=== PATIENT | female | born 1995 | race Caucasian/White ===

== ENCOUNTER 2017-04-14 06:53 | Inpatient (IN) | payer MEDICAID ==
[2017-04-14] MEDS ORDERED: Ondansetron 4 MG/2 ML SDV IV PRN (07:18)
[2017-04-14] MEDS ORDERED: Acetaminophen 325 MG Tab PO PRN (07:18)
[2017-04-14] MEDS ORDERED: Sodium Chloride 0.9% 10 ML Syringe FLUSH PRN (07:18)
[2017-04-14] MEDS ORDERED: fentaNYL 100 MCG/2 ML SDV IVPUSH PRN (07:18)
[2017-04-14] MEDS ORDERED: Lactated Ringers 1,000 ML IV ONE (07:33)
[2017-04-14] MEDS: Misoprostol 50 MCG (1/2 of 100 MCG) Tab VAG SCH ×3 (07:50→21:56)
--- NOTE | 2017-04-14 08:29 | PCM.LDHP ---
L&D History of Present Illness - General Date of Service: 04/14/17 Admit Problem/Dx: Patient Status Order with Admit Dx/Problem 04/14/17 07:19 Patient Status [ADT] Routine Admission Diagnosis/Problem Admission Diagnosis/Problem Source of Information: Patient History Limitations: Reports: No Limitations - Related Data Allergies/Adverse Reactions: Allergies Allergy/AdvReac Type Severity Reaction Status Date / Time seasonal Allergy Cough Uncoded 04/14/17 07:22 Home Medications: Home Meds Docosahexanoic Acid [ Dha] 200 mg DAILY 04/14/17 [History] Sertraline [Zoloft] 100 mg PO DAILY 04/14/17 [History] metFORMIN HCl [Metformin HCl ER] 500 mg PO DAILY 04/14/17 [History] Past Medical History - Past Health History Medical/Surgical History: Denies Medical/Surgical History 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 : 1 Para: 0 Other OB/BYN History: ANGELIQUE-04/10/2017 Neurological History: Reports: Other (See Below) Other Neuro History: PCOS Psychiatric History: Reports: Anxiety Social & Family History - Family History Respiratory: Reports: Asthma Psychiatric: Reports: Anxiety, Bipolar, Depression Hematologic: Reports: Anemia Other Hematologic Family History: maternal grandma H&P Review of Systems - Review of Systems: Review Of Systems: See Below General: Reports: No Symptoms HEENT: Reports: No Symptoms Pulmonary: Reports: No Symptoms Cardiovascular: Reports: No Symptoms Gastrointestinal: Reports: No Symptoms Genitourinary: Reports: No Symptoms Musculoskeletal: Reports: No Symptoms Skin: Reports: No Symptoms Psychiatric: Reports: No Symptoms Neurological: Reports: No Symptoms Hematologic/Lymphatic: Reports: No Symptoms Immunologic: Reports: No Symptoms L&D Exam - Exam Exam: See Below - Vital Signs Weight: 109.316 kg - OB Specific Contraction Intensity: Mild Movement: Active Heart Tones: Present Presentation: Vertex Estimated Weight: 8lbs - Lee Score Lee Score Cervix Position: Midposition Lee Score Consistency: Soft Lee Score Effacement: 51-70% Lee Score Dilation: 1-2 cm Lee Score Infant's Station: -2 Lee Score Total: 7 - Exam General: Alert, Oriented HEENT: PERRLA, Conjunctiva Clear, EACs Clear, EOMI, Hearing Intact, Mucosa Moist & [place], Nares Patent, Normal Nasal Septum, Posterior Pharynx Clear, TMs Clear Neck: Supple, Trachea Midline Lungs: Clear to Auscultation, Normal Respiratory Effort Cardiovascular: Regular Rate, Regular Rhythm GI/Abdominal Exam: Normal Bowel Sounds, Soft, Non-Tender, No Organomegaly, No Distention, No Abnormal Bruit, No Mass, Pelvis Stable Rectal Exam: Normal Exam, Normal Rectal Tone Genitourinary: Normal external exam, Normal bimanual exam, Normal speculum exam Back Exam: Normal Inspection, Full Range of Motion Extremities: Normal Inspection, Normal Range of Motion, Non-Tender, No Pedal Edema, Normal Capillary Refill Skin: Warm, Dry, Intact Neurological: Cranial Nerves Intact, Reflexes Equal Bilateral Psychiatric: Alert, Normal Affect, Normal Mood - Patient Data Lab Results Last 24 hrs: Laboratory Results - last 24 hr 04/14/17 04/14/17 04/14/17 Range/Units 07:05 07:05 07:40 WBC 15.3 H (4.5-11.0) K/uL RBC 4.27 (3.30-5.50) M/uL Hgb 12.5 (12.0-15.0) g/dL Hct 38.1 (36.0-48.0) % MCV 89 (80-98) fL MCH 29 (27-31) pg MCHC 33 (32-36) % Plt Count 231 (150-400) K/uL Add Manual Diff Yes Neutrophils % (Manual) 64 (36-66) % Band Neutrophils % 3 L (5-11) % Lymphocytes % (Manual) 22 L (24-44) % Monocytes % (Manual) 9 H (2-6) % Eosinophils % (Manual) 1 L (2-4) % Basophils % (Manual) 1 (0-1) % Urine Color Yellow Urine Appearance Slightly cloudy Urine pH 6.0 (4.5-8.0) Ur Specific [place] 1.020 (1.008-1.030) Urine Protein Negative (NEGATIVE) mg/dL Urine Glucose (UA) Normal (NEGATIVE) mg/dL Urine Ketones Negative (NEGATIVE) mg/dL Urine Occult Blood Negative (NEGATIVE) Urine Nitrite Negative (NEGATIVE) Urine Bilirubin Negative (NEGATIVE) Urine Urobilinogen Normal (NORMAL) mg/dL Ur Leukocyte Esterase Negative (NEGATIVE) Urine RBC 0-5 (0-5) Urine WBC 0-5 (0-5) Ur Epithelial Cells Rare Amorphous Sediment Not seen Urine Bacteria Rare Urine Mucus Moderate Urine Opiates Screen Negative (NEGATIVE) Ur Oxycodone Screen Negative (NEGATIVE) Urine Methadone Screen Negative (NEGATIVE) Ur Propoxyphene Screen Negative (NEGATIVE) Ur Barbiturates Screen Negative (NEGATIVE) Ur Tricyclics Screen Negative (NEGATIVE) Ur Phencyclidine Scrn Negative (NEGATIVE) Ur Amphetamine Screen Negative (NEGATIVE) U Methamphetamines Scrn Negative (NEGATIVE) Urine MDMA Screen Negative (NEGATIVE) U Benzodiazepines Scrn Negative (NEGATIVE) U Cocaine Metab Screen Negative (NEGATIVE) U Marijuana (THC) Screen Negative (NEGATIVE) Result Diagrams: 04/14/17 07:40 - Problem List (1) SNOMED Code(s): 50538211 ICD Code: Z34.90 - ENCNTR FOR SUPRVSN OF NORMAL , UNSP, UNSP TRIMESTER Status: Acute Current Visit: Yes Qualifiers: Weeks of gestation: 40 weeks Qualified Code(s): Z3A.40 - 40 weeks gestation of (2) Post-dates SNOMED Code(s): 23538560 ICD Code: O48.0 - POST-TERM Status: Acute Current Visit: Yes Qualifiers: Post-term type: 40-42 weeks gestation Qualified Code(s): O48.0 - Post-term (3) Elevated WBC count SNOMED Code(s): 528905127 ICD Code: D72.829 - ELEVATED WHITE BLOOD CELL COUNT, UNSPECIFIED Status: Acute Current Visit: Yes (4) Encounter for induction of labor SNOMED Code(s): 838243621 ICD Code: Z34.90 - ENCNTR FOR SUPRVSN OF NORMAL , UNSP, UNSP TRIMESTER Status: Acute Current Visit: Yes Problem List Initiated/Reviewed/Updated: Yes Orders Last 24hrs: Active Orders 24 hr Category Date Time Status Patient Status [ADT] Routine ADT 04/14/17 07:19 Active Ambulate [RC] PER UNIT ROUTINE Care 04/14/17 07:18 Active Communication Order [RC] ASDIRECTED Care 04/14/17 07:19 Active Heart Tones [RC] PER UNIT ROUTINE Care 04/14/17 07:19 Active Local Anesthetic Infusion Pump [RC] ASDIRECTED Care 04/14/17 07:33 Active May Shower [RC] ASDIRECTED Care 04/14/17 07:18 Active Notify Provider Vital Signs [RC] PRN Care 04/14/17 07:18 Active Notify Provider [RC] PRN Care 04/14/17 07:19 Active PCEA Epidural [RC] ASDIRECTED Care 04/14/17 07:33 Active Up ad Izabella [RC] ASDIRECTED Care 04/14/17 07:18 Active VTE/DVT Education [RC] Click to Edit Care 04/14/17 07:29 Active Vital Signs [RC] PER UNIT ROUTINE Care 04/14/17 07:19 Active Acetaminophen [Tylenol] Med 04/14/17 07:18 Active 650 mg PO Q4H PRN Lactated Ringers [Ringers, Lactated] 1,000 ml Med 04/14/17 07:33 Active IV .BOLUS Lactated Ringers [Ringers, Lactated] 1,000 ml Med 04/14/17 08:30 Ordered IV ASDIRECTED Misoprostol [Cytotec] Med 04/14/17 08:00 Active 50 mcg VAG Q4H Ondansetron [Zofran] Med 04/14/17 07:18 Active 4 mg IV Q4H PRN Penicillin G Potassium [Pfizerpen] 2.5 millunits Med 04/14/17 12:30 Ordered Sodium Chloride 0.9% [Normal Saline] 50 ml IV Q4H Penicillin G Potassium [Pfizerpen] 5 millunits Med 04/14/17 08:20 Ordered Sodium Chloride 0.9% [Normal Saline] 50 ml IV ONETIME Sodium Chloride 0.9% [Saline Flush] Med 04/14/17 07:18 Active 10 ml FLUSH ASDIRECTED PRN fentaNYL [Sublimaze] Med 04/14/17 07:18 Active 100 mcg IVPUSH Q1H PRN DVT/VTE Prophylaxis Reflex [OM.PC] Routine Oth 04/14/17 07:18 Ordered Epidural Catheter Management [OM.PC] Routine Oth 04/14/17 07:33 Ordered Saline Lock Insert [OM.PC] Routine Oth 04/14/17 07:19 Ordered Resuscitation Status Routine Resus Stat 04/14/17 07:18 Ordered Medication Orders Acetaminophen (Tylenol) 650 mg PO Q4H PRN PRN Reason: Pain (Mild 1-3) and fever Fentanyl (Sublimaze) 100 mcg IVPUSH Q1H PRN PRN Reason: Pain (moderate 4-6) Lactated Ringer's (Ringers, Lactated) 1,000 mls @ 999 mls/hr IV .BOLUS ONE Stop: 04/14/17 08:33 Lactated Ringer's (Ringers, Lactated) 1,000 mls @ 125 mls/hr IV ASDIRECTED LORRI Penicillin G Potassium 5 (millunits/ Sodium Chloride) 50 mls @ 100 mls/hr IV ONETIME ONE Stop: 04/14/17 08:49 Penicillin G Potassium 2.5 (millunits/ Sodium Chloride) 50 mls @ 100 mls/hr IV Q4H LORRI Misoprostol (Cytotec) 50 mcg VAG Q4H LORRI Last Admin: 04/14/17 07:50 Dose: 50 mcg Ondansetron HCl (Zofran) 4 mg IV Q4H PRN PRN Reason: Nausea/Vomiting Sodium Chloride (Saline Flush) 10 ml FLUSH ASDIRECTED PRN PRN Reason: Keep Vein Open Assessment/Plan Comment:: 04/14/2017 21 yo 40 4/7 weeks gestation here for a planned elective induction SVE-1-2/75/-2 bishops-7 Cytotec 50mcg placed Plan- Monitor for active labor Monitor FHTs Up and about Can eat regular diet Intermittent monitoring if category one strip Pain management per patient request Anticipate and plan for a vaginal delivery
[2017-04-14] MEDS ORDERED: Lactated Ringers 1,000 ML IV SCH (08:30)
[2017-04-14] MEDS ORDERED: Penicillin G Potassium 5 MILLUNITS in Sodium Chloride 0.9% 50 ML IV ONE (09:00)
--- NOTE | 2017-04-14 10:32 | PCM.PNLD ---
Labor Progress Note - VS & Meds Vital Signs: Last Vital Signs Temp 37.1 C 04/14/17 08:00 Pulse 98 04/14/17 08:30 Resp 18 04/14/17 08:30 BP 110/73 04/14/17 08:30 Pulse Ox 95 04/14/17 08:30 Active Medications: Current Medications Acetaminophen (Tylenol) 650 mg PO Q4H PRN PRN Reason: Pain (Mild 1-3) and fever Fentanyl (Sublimaze) 100 mcg IVPUSH Q1H PRN PRN Reason: Pain (moderate 4-6) Lactated Ringer's (Ringers, Lactated) 1,000 mls @ 125 mls/hr IV ASDIRECTED LORRI Last Admin: 04/14/17 09:05 Dose: 125 mls/hr Penicillin G Potassium 2.5 (millunits/ Sodium Chloride) 50 mls @ 100 mls/hr IV Q4H LORRI Misoprostol (Cytotec) 50 mcg VAG Q4H [facility] Last Admin: 04/14/17 07:50 Dose: 50 mcg Ondansetron HCl (Zofran) 4 mg IV Q4H PRN PRN Reason: Nausea/Vomiting Sodium Chloride (Saline Flush) 10 ml FLUSH ASDIRECTED PRN PRN Reason: Keep Vein Open Discontinued Medications Oxytocin/Sodium Chloride (Pitocin In Ns 20 Units/1,000 Ml) 20 unit in 1,000 mls @ 2,997 mls/hr IV ONETIME ONE; 999 MUNITS/MIN PRN Reason: Protocol Stop: 04/14/17 07:53 Lactated Ringer's (Ringers, Lactated) 1,000 mls @ 999 mls/hr IV .BOLUS ONE Stop: 04/14/17 08:33 Penicillin G Potassium 5 (millunits/ Sodium Chloride) 50 mls @ 100 mls/hr IV ONETIME ONE Stop: 04/14/17 09:29 Last Admin: 04/14/17 09:05 Dose: 100 mls/hr - Uterine Contractions Uterine Monitoring Mode: External [place] Contraction Frequency (min): undetecable Contraction Duration (sec): 40-80 Contraction Intensity: Mild Uterine Resting Tone: Soft - Vaginal Exam Dilation (cm): 2-2.5 Effacement (Percent): 75 Station: -2 Cervical Position: Anterior Sterile Vaginal Exam Performed By: Shalonda Ley Vaginal Exam Comment: SROM - Labor Progress (Free Text) Labor Progress: 04/14/2017 Patient felt a "pop" and a gush SVE-2-2.5/75/-2 Fluid noted in vaginal canal and able to feel head better Patient tolerating pain well Plan- Continue to monitor labor Continue to monitor FHT Pain management per patient request Continue antibiotics for elevated WBC Continue IV fluids Anticipate and plan for a vaginal delivery
[2017-04-14] MEDS: fentaNYL 100 MCG/2 ML SDV IVPUSH PRN ×2 (11:48→12:52)
--- NOTE | 2017-04-14 12:55 | PCM.PNLD ---
Labor Progress Note - VS & Meds Vital Signs: Last Vital Signs Temp 36.9 C 04/14/17 11:00 Pulse 100 04/14/17 11:00 Resp 18 04/14/17 11:00 BP 118/77 04/14/17 11:00 Pulse Ox 98 04/14/17 11:00 Active Medications: Current Medications Acetaminophen (Tylenol) 650 mg PO Q4H PRN PRN Reason: Pain (Mild 1-3) and fever Fentanyl (Sublimaze) 50 - 100 mcg IVPUSH Q1H PRN PRN Reason: Pain (moderate 4-6) Last Admin: 04/14/17 11:48 Dose: 50 mcg Lactated Ringer's (Ringers, Lactated) 1,000 mls @ 125 mls/hr IV ASDIRECTED LORRI Last Admin: 04/14/17 09:05 Dose: 125 mls/hr Penicillin G Potassium 2.5 (millunits/ Sodium Chloride) 50 mls @ 100 mls/hr IV Q4H LORRI Oxytocin/Sodium Chloride (Pitocin In Ns 20 Units/1,000 Ml) 20 unit in 1,000 mls @ 6 mls/hr IV TITRATE LORRI; 2 MUNITS/MIN PRN Reason: Protocol Misoprostol (Cytotec) 50 mcg VAG Q4H LORRI Last Admin: 04/14/17 07:50 Dose: 50 mcg Ondansetron HCl (Zofran) 4 mg IV Q4H PRN PRN Reason: Nausea/Vomiting Last Admin: 04/14/17 11:51 Dose: 4 mg Sodium Chloride (Saline Flush) 10 ml FLUSH ASDIRECTED PRN PRN Reason: Keep Vein Open Discontinued Medications Fentanyl (Sublimaze) 100 mcg IVPUSH Q1H PRN PRN Reason: Pain (moderate 4-6) Oxytocin/Sodium Chloride (Pitocin In Ns 20 Units/1,000 Ml) 20 unit in 1,000 mls @ 2,997 mls/hr IV ONETIME ONE; 999 MUNITS/MIN PRN Reason: Protocol Stop: 04/14/17 07:53 Lactated Ringer's (Ringers, Lactated) 1,000 mls @ 999 mls/hr IV .BOLUS ONE Stop: 04/14/17 08:33 Penicillin G Potassium 5 (millunits/ Sodium Chloride) 50 mls @ 100 mls/hr IV ONETIME ONE Stop: 04/14/17 09:29 Last Admin: 04/14/17 09:05 Dose: 100 mls/hr - Uterine Contractions Uterine Monitoring Mode: External [place] Contraction Frequency (min): indeterminate Contraction Duration (sec): 40-80 Contraction Intensity: Moderate to Strong Uterine Resting Tone: Soft - Vaginal Exam Dilation (cm): 3-3.5 Effacement (Percent): 85 Station: -2 Cervical Position: Anterior Sterile Vaginal Exam Performed By: Shalonda Ley Vaginal Exam Comment: patient requesting epidural - Labor Progress (Free Text) Labor Progress: 04/14/2017 Patient progressing in labor SVE-3-3.5/85/-2 Contractions regular FHTs category one Patient not tolerating pain with IV medications and is requesting an epidural Plan- Continue to monitor labor Continue to monitor FHTs Epidural for pain management per patient request Once comfortable-place sterling catheter and start pitocin Anticipate and plan for a vaginal delivery
[2017-04-14] MEDS ORDERED: ePHEDrine/Normal Saline 50 MG/5 ML Syringe IVPUSH PRN ×2 (13:06→14:19)
[2017-04-14] MEDS: Penicillin G Potassium 2.5 MILLUNITS in Sodium Chloride 0.9% 50 ML IV SCH ×3 (13:12→21:56)
[2017-04-14] MEDS ORDERED: ePHEDrine/Normal Saline 50 MG/5 ML Syringe ONE (13:47)
[2017-04-14] MEDS ORDERED: Ropivacaine 100 ML EPIDUR SCH (14:19)
[2017-04-14] MEDS ORDERED: diphenhydrAMINE 50 MG/ML SDV IVPUSH PRN (14:19)
[2017-04-14] MEDS ORDERED: Naloxone 0.4 MG/ML SDV IVPUSH PRN (14:19)
[2017-04-14] MEDS ORDERED: Lactated Ringers 500 ML IV ONE (15:50)
--- NOTE | 2017-04-14 17:19 | PCM.PNLD ---
Labor Progress Note - VS & Meds Vital Signs: Last Vital Signs Temp 37.2 C 04/14/17 16:30 Pulse 110 H 04/14/17 16:30 Resp 18 04/14/17 16:30 BP 108/63 04/14/17 16:30 Pulse Ox 97 04/14/17 15:30 Active Medications: Current Medications Acetaminophen (Tylenol) 650 mg PO Q4H PRN PRN Reason: Pain (Mild 1-3) and fever Diphenhydramine HCl (Benadryl) 25 mg IVPUSH Q6H PRN PRN Reason: ITCHING Ephedrine Sulfate (Ephedrine In Ns) 5 - 10 mg IVPUSH ONETIME PRN PRN Reason: Hypotension Ephedrine Sulfate (Ephedrine In Ns) 5 - 10 mg IVPUSH ASDIRECTED PRN PRN Reason: SYSTOLIC BP LESS THAN 100 Fentanyl (Sublimaze) 50 - 100 mcg IVPUSH Q1H PRN PRN Reason: Pain (moderate 4-6) Last Admin: 04/14/17 12:52 Dose: 100 mcg Lactated Ringer's (Ringers, Lactated) 1,000 mls @ 125 mls/hr IV ASDIRECTED LORRI Last Admin: 04/14/17 09:05 Dose: 125 mls/hr Penicillin G Potassium 2.5 (millunits/ Sodium Chloride) 50 mls @ 100 mls/hr IV Q4H LORRI Last Admin: 04/14/17 16:54 Dose: 100 mls/hr Oxytocin/Sodium Chloride (Pitocin In Ns 20 Units/1,000 Ml) 20 unit in 1,000 mls @ 6 mls/hr IV TITRATE LORRI; 2 MUNITS/MIN PRN Reason: Protocol Last Titration: 04/14/17 15:36 Dose: 2 munits/min, 6 mls/hr Ropivacaine (Naropin 0.2%) 100 mls @ 0 mls/hr EPIDUR ASDIRECTED LORRI; Titrate PRN Reason: Protocol Misoprostol (Cytotec) 50 mcg VAG Q4H LORRI Last Admin: 04/14/17 16:58 Dose: Not Given Naloxone HCl (Narcan) 0.1 mg IVPUSH Q5M PRN PRN Reason: IF RESP RATE LESS THAN 6 Ondansetron HCl (Zofran) 4 mg IV Q4H PRN PRN Reason: Nausea/Vomiting Last Admin: 04/14/17 11:51 Dose: 4 mg Sodium Chloride (Saline Flush) 10 ml FLUSH ASDIRECTED PRN PRN Reason: Keep Vein Open Discontinued Medications Ephedrine Sulfate (Ephedrine In Ns) Confirm Administered Dose 50 mg .ROUTE .STK- MED ONE Stop: 04/14/17 13:48 Last Admin: 04/14/17 15:04 Dose: Not Given Fentanyl (Sublimaze) 100 mcg IVPUSH Q1H PRN PRN Reason: Pain (moderate 4-6) Oxytocin/Sodium Chloride (Pitocin In Ns 20 Units/1,000 Ml) 20 unit in 1,000 mls @ 2,997 mls/hr IV ONETIME ONE; 999 MUNITS/MIN PRN Reason: Protocol Stop: 04/14/17 07:53 Lactated Ringer's (Ringers, Lactated) 1,000 mls @ 999 mls/hr IV .BOLUS ONE Stop: 04/14/17 08:33 Last Admin: 04/14/17 12:41 Dose: 999 mls/hr Penicillin G Potassium 5 (millunits/ Sodium Chloride) 50 mls @ 100 mls/hr IV ONETIME ONE Stop: 04/14/17 09:29 Last Admin: 04/14/17 09:05 Dose: 100 mls/hr Oxytocin/Sodium Chloride (Pitocin In Ns 20 Units/1,000 Ml) Confirm Administered Dose 20 unit in 1,000 mls @ as directed .ROUTE .STK-MED ONE Stop: 04/14/17 14:57 Last Admin: 04/14/17 15:02 Dose: Not Given Lactated Ringer's (Ringers, Lactated) 500 mls @ 999 mls/hr IV BOLUS ONE Stop: 04/14/17 16:20 - Uterine Contractions Uterine Monitoring Mode: External [place] Contraction Frequency (min): indeterminate Contraction Duration (sec): 40-60 Contraction Intensity: Mild to Moderate Uterine Resting Tone: Soft - Vaginal Exam Dilation (cm): 8 Effacement (Percent): 95 Station: -1 Cervical Position: Anterior Sterile Vaginal Exam Performed By: Shalonda Ley - Labor Progress (Free Text) Labor Progress: 04/14/2017 Patient progressing in labor nicely SVE-8/95/-1-0 Patient now comfortable with epidural Pitocin going per protocol Pen G going per protocol Plan- Continue to monitor labor Continue to monitor FHTS Continue Epidural for pain control Continue antibiotics per protocol Anticipate and plan for a vaginal delivery
[2017-04-14] MEDS ORDERED: Lidocaine 1% 50 ML MDV ONE (19:03)
[2017-04-14] MEDS ORDERED: Benzocaine 20% Top Spray 56 GM Bottle TOP PRN (19:42)
[2017-04-14] MEDS ORDERED: Docusate Sodium 100 MG Cap PO PRN (19:42)
[2017-04-14] MEDS ORDERED: Ibuprofen 600 MG Tab PO PRN (19:42)
[2017-04-14] MEDS ORDERED: Acetaminophen/Codeine 300-30 MG Tab PO PRN (19:42)
[2017-04-14] MEDS ORDERED: Witch Hazel Medicated Pads 100/Jar TOP PRN (19:42)
[2017-04-14] MEDS ORDERED: Lanolin 100% Cream 40 GM Tube TOP PRN (19:42)
[2017-04-14] MEDS ORDERED: Ibuprofen 200 MG Tab, 24 Tab Bulk Bottle PO PRN (19:48)
[2017-04-14] MEDS ORDERED: Acetaminophen 325 MG Tab, 50 Tab Bulk Bottle PO PRN ×3 (19:48→22:15)
--- NOTE | 2017-04-14 19:54 | PCM.DEL ---
L & D Note - General Info Date of Service: 04/14/17 Mother's Due Date: 04/10/17 - Delivery Note Labor: Spontaneous Delivery Outcome: Livebirth Infant Delivery Method: Spontaneous Vaginal Delivery-Single Infant Delivery Mode: Spontaneous Presentation: Left Occiput Anterior (TORITO) Nuchal Cord: None Anesthesia Type: Epidural Laceration: 1st Degree, Labial (bilateral-deep), Perineal Suture type: Chromic Suture size: 3-0 Placenta: Intact, Spontaneous Cord: 3 Vessels Resuscitation Needed: No [place]: Bulb Syringe, Stimulated, Warmed, [place] Used Post Delivery Events: Shoulder Dystocia Second Stage Interventions: Reports: Encouragement Given, Pushing Effectively Delivery Comments (Free Text/Narrative):: 04/14/2017 21 yo at 40 4/7 gestational weeks delivered a viable female infant at 1839 on 04/14/2017 in ANJEL position, with a moderate shoulder dystocia that resolved with suprapubic, Leila, and manuever of anterior shoulder. -9 /9, weight-7lbs 5.4oz, length-19.4 inches, cord double clamped by provider and infant brought to warmer for initial assessment, infant began to cry as being placed on the warmer, infant then pinked in color, bulb suction, dried, stimulated and warmed before bringing back to mother for skin to skin. Placenta then spontaneous, three vessel cord, EBL-500ml, Bilateral labial lacerations noted and first degree perineal-all repaired in usual fashion. No lacerations noted of cervix, vagina, or rectum. Infant now remains skin to skin and stable with mother in labor and delivery room. - Patient Data Vitals - Most Recent: Last Vital Signs Temp 37.7 C 04/14/17 18:03 Pulse 107 H 04/14/17 18:03 Resp 16 04/14/17 18:03 BP 123/68 04/14/17 18:03 Pulse Ox 98 04/14/17 18:03 Weight - Most Recent: 109.316 kg Lab Results Last 24 Hours: Laboratory Results - last 24 hr 04/14/17 04/14/17 04/14/17 Range/Units 07:05 07:05 07:40 WBC 15.3 H (4.5-11.0) K/uL RBC 4.27 (3.30-5.50) M/uL Hgb 12.5 (12.0-15.0) g/dL Hct 38.1 (36.0-48.0) % MCV 89 (80-98) fL MCH 29 (27-31) pg MCHC 33 (32-36) % Plt Count 231 (150-400) K/uL Add Manual Diff Yes Neutrophils % (Manual) 64 (36-66) % Band Neutrophils % 3 L (5-11) % Lymphocytes % (Manual) 22 L (24-44) % Monocytes % (Manual) 9 H (2-6) % Eosinophils % (Manual) 1 L (2-4) % Basophils % (Manual) 1 (0-1) % Urine Color Yellow Urine Appearance Slightly cloudy Urine pH 6.0 (4.5-8.0) Ur Specific [place] 1.020 (1.008-1.030) Urine Protein Negative (NEGATIVE) mg/dL Urine Glucose (UA) Normal (NEGATIVE) mg/dL Urine Ketones Negative (NEGATIVE) mg/dL Urine Occult Blood Negative (NEGATIVE) Urine Nitrite Negative (NEGATIVE) Urine Bilirubin Negative (NEGATIVE) Urine Urobilinogen Normal (NORMAL) mg/dL Ur Leukocyte Esterase Negative (NEGATIVE) Urine RBC 0-5 (0-5) Urine WBC 0-5 (0-5) Ur Epithelial Cells Rare Amorphous Sediment Not seen Urine Bacteria Rare Urine Mucus Moderate Urine Opiates Screen Negative (NEGATIVE) Ur Oxycodone Screen Negative (NEGATIVE) Urine Methadone Screen Negative (NEGATIVE) Ur Propoxyphene Screen Negative (NEGATIVE) Ur Barbiturates Screen Negative (NEGATIVE) Ur Tricyclics Screen Negative (NEGATIVE) Ur Phencyclidine Scrn Negative (NEGATIVE) Ur Amphetamine Screen Negative (NEGATIVE) U Methamphetamines Scrn Negative (NEGATIVE) Urine MDMA Screen Negative (NEGATIVE) U Benzodiazepines Scrn Negative (NEGATIVE) U Cocaine Metab Screen Negative (NEGATIVE) U Marijuana (THC) Screen Negative (NEGATIVE) Med Orders - Current: Current Medications Acetaminophen (Tylenol) 650 mg PO Q4H PRN PRN Reason: Pain (Mild 1-3) and fever Acetaminophen (Tylenol Bulk Bottle) 325 mg PO Q4H PRN PRN Reason: Pain Acetaminophen/Codeine Phosphate (Tylenol With Codeine No.3 300mg/30mg) 1 tab PO Q4H PRN PRN Reason: Pain (moderate 4-6) Benzocaine (Nhdy-O-Dmjclty 20% [place]) 0 gm TOP Q4H PRN PRN Reason: Perineal Comfort Measure Diphenhydramine HCl (Benadryl) 25 mg IVPUSH Q6H PRN PRN Reason: ITCHING Docusate Sodium (Colace) 100 mg PO BID PRN PRN Reason: Constipation Emollient Ointment (Lansinoh Hpa) 1 gm TOP ASDIRECTED PRN PRN Reason: Sore Nipples Ephedrine Sulfate (Ephedrine In Ns) 5 - 10 mg IVPUSH ONETIME PRN PRN Reason: Hypotension Ephedrine Sulfate (Ephedrine In Ns) 5 - 10 mg IVPUSH ASDIRECTED PRN PRN Reason: SYSTOLIC BP LESS THAN 100 Fentanyl (Sublimaze) 50 - 100 mcg IVPUSH Q1H PRN PRN Reason: Pain (moderate 4-6) Last Admin: 04/14/17 12:52 Dose: 100 mcg Lactated Ringer's (Ringers, Lactated) 1,000 mls @ 125 mls/hr IV ASDIRECTED LORRI Last Admin: 04/14/17 09:05 Dose: 125 mls/hr Penicillin G Potassium 2.5 (millunits/ Sodium Chloride) 50 mls @ 100 mls/hr IV Q4H LORRI Last Admin: 04/14/17 16:54 Dose: 100 mls/hr Oxytocin/Sodium Chloride (Pitocin In Ns 20 Units/1,000 Ml) 20 unit in 1,000 mls @ 6 mls/hr IV TITRATE LORRI; 2 MUNITS/MIN PRN Reason: Protocol Last Titration: 04/14/17 15:36 Dose: 2 munits/min, 6 mls/hr Ropivacaine (Naropin 0.2%) 100 mls @ 0 mls/hr EPIDUR ASDIRECTED LORRI; Titrate PRN Reason: Protocol Ibuprofen (Motrin) 600 mg PO Q6H PRN PRN Reason: mild pain or fever Ibuprofen (Motrin Bulk Bottle) 600 mg PO Q6H PRN PRN Reason: Pain Misoprostol (Cytotec) 50 mcg VAG Q4H LORRI Last Admin: 04/14/17 16:58 Dose: Not Given Naloxone HCl (Narcan) 0.1 mg IVPUSH Q5M PRN PRN Reason: IF RESP RATE LESS THAN 6 Ondansetron HCl (Zofran) 4 mg IV Q4H PRN PRN Reason: Nausea/Vomiting Last Admin: 04/14/17 11:51 Dose: 4 mg Sodium Chloride (Saline Flush) 10 ml FLUSH ASDIRECTED PRN PRN Reason: Keep Vein Open Susan Simons (Tucks) 1 pad TOP ASDIRECTED PRN PRN Reason: Hemorrhoids Discontinued Medications Ephedrine Sulfate (Ephedrine In Ns) Confirm Administered Dose 50 mg .ROUTE .STK- MED ONE Stop: 04/14/17 13:48 Last Admin: 04/14/17 15:04 Dose: Not Given Fentanyl (Sublimaze) 100 mcg IVPUSH Q1H PRN PRN Reason: Pain (moderate 4-6) Oxytocin/Sodium Chloride (Pitocin In Ns 20 Units/1,000 Ml) 20 unit in 1,000 mls @ 2,997 mls/hr IV ONETIME ONE; 999 MUNITS/MIN PRN Reason: Protocol Stop: 04/14/17 07:53 Lactated Ringer's (Ringers, Lactated) 1,000 mls @ 999 mls/hr IV .BOLUS ONE Stop: 04/14/17 08:33 Last Admin: 04/14/17 12:41 Dose: 999 mls/hr Penicillin G Potassium 5 (millunits/ Sodium Chloride) 50 mls @ 100 mls/hr IV ONETIME ONE Stop: 04/14/17 09:29 Last Admin: 04/14/17 09:05 Dose: 100 mls/hr Oxytocin/Sodium Chloride (Pitocin In Ns 20 Units/1,000 Ml) Confirm Administered Dose 20 unit in 1,000 mls @ as directed .ROUTE .STK-MED ONE Stop: 04/14/17 14:57 Last Admin: 04/14/17 15:02 Dose: Not Given Lactated Ringer's (Ringers, Lactated) 500 mls @ 999 mls/hr IV BOLUS ONE Stop: 04/14/17 16:20 Lidocaine HCl (Xylocaine 1%) Confirm Administered Dose 100 ml .ROUTE .STK-MED ONE Stop: 04/14/17 19:04 - Exam General: Alert, Oriented HEENT: Pupils Equal, Pupils Reactive, EOMI, Mucous Membr. Moist/[place] Neck: Supple Lungs: Clear to Auscultation, Normal Respiratory Effort Cardiovascular: Regular Rate, Regular Rhythm GI/Abdominal Exam: Normal Bowel Sounds, Soft, Non-Tender, No Organomegaly, No Distention, No Abnormal Bruit, No Mass, Pelvis Stable (Female) Exam: Normal External Exam, Normal Speculum Exam, Normal Bimanual Exam, Enlarged Uterus, Vaginal Bleeding Back Exam: Normal Inspection, Full Range of Motion Extremities: Normal Inspection, Normal Range of Motion, Non-Tender, No Pedal Edema, Normal Capillary Refill Skin: Warm, Dry, Intact Neurological: No New Focal Deficit Psy/Mental Status: Alert, Normal Affect, Normal Mood - Problem List & Annotations (1) SNOMED Code(s): 14189780 Code(s): Z34.90 - ENCNTR FOR SUPRVSN OF NORMAL , UNSP, UNSP TRIMESTER Status: Acute Current Visit: Yes Qualifiers: Weeks of gestation: 40 weeks Qualified Code(s): Z3A.40 - 40 weeks gestation of (2) Post-dates SNOMED Code(s): 44854854 Code(s): O48.0 - POST-TERM Status: Acute Current Visit: Yes Qualifiers: Post-term type: 40-42 weeks gestation Qualified Code(s): O48.0 - Post-term (3) Elevated WBC count SNOMED Code(s): 299157941 Code(s): D72.829 - ELEVATED WHITE BLOOD CELL COUNT, UNSPECIFIED Status: Acute Current Visit: Yes (4) Encounter for induction of labor SNOMED Code(s): 777823423 Code(s): Z34.90 - ENCNTR FOR SUPRVSN OF NORMAL , UNSP, UNSP TRIMESTER Status: Acute Current Visit: Yes (5) Maternal fever affecting labor SNOMED Code(s): 820927619 Code(s): O75.2 - PYREXIA DURING LABOR, NOT ELSEWHERE CLASSIFIED Status: Acute Current Visit: Yes (6) Laceration of labial mucosa without complication SNOMED Code(s): 418402544 Code(s): S01.512A - LACERATION WITHOUT FOREIGN BODY OF ORAL CAVITY, INIT ENCNTR Status: Acute Current Visit: Yes Qualifiers: Encounter type: initial encounter Qualified Code(s): S01.512A - Laceration without foreign body of oral cavity, initial encounter (7) Perineal laceration SNOMED Code(s): 931449830 Code(s): S31.41XA - LACERATION W/O FOREIGN BODY OF VAGINA AND VULVA, INIT ENCNTR Status: Acute Current Visit: Yes Qualifiers: Encounter type: initial encounter Qualified Code(s): S31.41XA - Laceration without foreign body of vagina and vulva, initial encounter (8) Normal vaginal delivery SNOMED Code(s): 45365536 Code(s): O80 - ENCOUNTER FOR FULL-TERM UNCOMPLICATED DELIVERY Status: Acute Current Visit: Yes (9) Shoulder (girdle) dystocia during labor and deliver, delivered SNOMED Code(s): 96329637 Code(s): O66.0 - OBSTRUCTED LABOR DUE TO SHOULDER DYSTOCIA Status: Acute Current Visit: Yes (10) () SNOMED Code(s): 703855777 Code(s): Z78.9 - OTHER SPECIFIED HEALTH STATUS Status: Acute Current Visit: Yes - Problem List Review Problem List Initiated/Reviewed/Updated: Yes - My Orders Last 24 Hours: My Active Orders 04/14/17 07:18 Ambulate [RC] PER UNIT ROUTINE May Shower [RC] ASDIRECTED Notify Provider Vital Signs [RC] PRN Up ad Izabella [RC] ASDIRECTED Acetaminophen [Tylenol] 650 mg PO Q4H PRN Ondansetron [Zofran] 4 mg IV Q4H PRN Sodium Chloride 0.9% [Saline Flush] 10 ml FLUSH ASDIRECTED PRN DVT/VTE Prophylaxis Reflex [OM.PC] Routine Resuscitation Status Routine 04/14/17 07:19 Patient Status [ADT] Routine Communication Order [RC] ASDIRECTED Heart Tones [RC] PER UNIT ROUTINE Notify Provider [RC] PRN Vital Signs [RC] PER UNIT ROUTINE Saline Lock Insert [OM.PC] Routine 04/14/17 07:29 VTE/DVT Education [RC] Click to Edit 04/14/17 07:33 Local Anesthetic Infusion Pump [RC] ASDIRECTED PCEA Epidural [RC] ASDIRECTED Epidural Catheter Management [OM.PC] Routine 04/14/17 08:00 Misoprostol [Cytotec] 50 mcg VAG Q4H 04/14/17 08:30 Lactated Ringers [Ringers, Lactated] 1,000 ml IV ASDIRECTED 04/14/17 10:30 Oxytocin/Normal Saline [Pitocin in NS 20 Units/1,000 ML] 20 unit in 1,000 ml IV TITRATE 04/14/17 11:43 fentaNYL [Sublimaze] 50 - 100 mcg IVPUSH Q1H PRN 04/14/17 13:00 Penicillin G Potassium [Pfizerpen] 2.5 millunits Sodium Chloride 0.9% [Normal Saline] 50 ml IV Q4H 04/14/17 13:06 ePHEDrine/Normal Saline [ePHEDrine in NS] 5 - 10 mg IVPUSH ONETIME PRN 04/14/17 19:42 Patient Status [ADT] Routine Vital Signs [RC] PFP Acetaminophen/Codeine [Tylenol with Codeine No.3 300MG/30MG] 1 tab PO Q4H PRN Benzocaine [Tryf-K-Iovfjrg 20% [place]] See Dose Instructions TOP Q4H PRN Docusate Sodium [Colace] 100 mg PO BID PRN Ibuprofen [Motrin] 600 mg PO Q6H PRN Lanolin [Lansinoh HPA] 1 gm TOP ASDIRECTED PRN Witch Kristyn [Tucks] 1 pad TOP ASDIRECTED PRN Assess Lochia [WOMSER] Per Unit Routine Assess Uterine Involution [WOMSER] Per Unit Routine 04/14/17 19:44 Ice Therapy [OM.PC] Per Unit Routine Perineal Care [OM.PC] Per Unit Routine Sitz Bath [OM.PC] Per Unit Routine 04/14/17 19:48 Acetaminophen [Tylenol Bulk Bottle] 325 mg PO Q4H PRN Ibuprofen [Motrin Bulk Bottle] 600 mg PO Q6H PRN 04/15/17 06:00 CBC WITH AUTO DIFF [HEME] Routine - Assessment Assessment:: 04/14/2017 21 yo G1 now P1 40 4/7 gestational weeks with a shoulder dystocia Perineal Laceration Bilateral Labial laceration Labs-A positive, Rubella Immune, GBS negative, RPR nonreactive, Hep B neg, HIV neg - Plan Plan:: 04/14/2017 21 yo 40 4/7 weeks gestation here for a planned elective induction SVE-1-2/75/-2 bishops-7 Cytotec 50mcg placed Plan- Monitor for active labor Monitor FHTs Up and about Can eat regular diet Intermittent monitoring if category one strip Pain management per patient request Anticipate and plan for a vaginal delivery 04/14/2017 Routine Cares Encourage and support Ice, tucks, and dermaplast to labial area Plan discharge at 48hrs due to elevated temperature and WBC
[2017-04-15] MEDS ORDERED: cefTRIAXone 1 GM in Sodium Chloride 0.9% 50 ML IV SCH (09:00)
--- NOTE | 2017-04-15 10:10 | PCM.PNPP ---
- General Info Date of Service: 04/15/17 ( day one) Functional Status: Reports: Pain Controlled - Review of Systems General: Reports: No Symptoms HEENT: Reports: No Symptoms Pulmonary: Reports: No Symptoms Cardiovascular: Reports: No Symptoms Gastrointestinal: Reports: No Symptoms Genitourinary: Reports: No Symptoms Musculoskeletal: Reports: No Symptoms Skin: Reports: No Symptoms Neurological: Reports: No Symptoms Psychiatric: Reports: No Symptoms - General Info Date of Service: 04/15/17 - Patient Data Vital Signs - Most Recent: Last Vital Signs Temp 36.9 C 04/15/17 03:00 Pulse 93 04/15/17 03:00 Resp 18 04/15/17 03:00 BP 101/61 04/15/17 03:00 Pulse Ox 97 04/15/17 03:00 Weight - Most Recent: 109.316 kg I&O - Last 24 Hours: Intake & Output 04/14/17 04/15/17 04/15/17 22:59 06:59 14:59 Intake Total 2236 Balance 2236 Lab Results - Last 24 Hours: Laboratory Results - last 24 hr 04/15/17 Range/Units 05:03 WBC 22.2 H (4.5-11.0) K/uL RBC 4.06 (3.30-5.50) M/uL Hgb 12.2 (12.0-15.0) g/dL Hct 36.2 (36.0-48.0) % MCV 89 (80-98) fL MCH 30 (27-31) pg MCHC 34 (32-36) % Plt Count 222 (150-400) K/uL Add Manual Diff Yes Neutrophils % (Manual) 69 H (36-66) % Band Neutrophils % 2 L (5-11) % Lymphocytes % (Manual) 20 L (24-44) % Monocytes % (Manual) 8 H (2-6) % Eosinophils % (Manual) 1 L (2-4) % Med Orders - Current: Current Medications Acetaminophen (Tylenol Bulk Bottle) 325 - 650 mg PO Q4H PRN PRN Reason: Pain Benzocaine (Iyqq-C-Qqotona 20% [place]) 0 gm TOP Q4H PRN PRN Reason: Perineal Comfort Measure Diphenhydramine HCl (Benadryl) 25 mg IVPUSH Q6H PRN PRN Reason: ITCHING Docusate Sodium (Colace) 100 mg PO BID PRN PRN Reason: Constipation Emollient Ointment (Lansinoh Hpa) 0 gm TOP ASDIRECTED PRN PRN Reason: Sore Nipples Last Admin: 04/14/17 22:10 Dose: 1 applic Ephedrine Sulfate (Ephedrine In Ns) 5 - 10 mg IVPUSH ONETIME PRN PRN Reason: Hypotension Ephedrine Sulfate (Ephedrine In Ns) 5 - 10 mg IVPUSH ASDIRECTED PRN PRN Reason: SYSTOLIC BP LESS THAN 100 Fentanyl (Sublimaze) 50 - 100 mcg IVPUSH Q1H PRN PRN Reason: Pain (moderate 4-6) Last Admin: 04/14/17 12:52 Dose: 100 mcg Lactated Ringer's (Ringers, Lactated) 1,000 mls @ 125 mls/hr IV ASDIRECTED LORRI Last Admin: 04/14/17 09:05 Dose: 125 mls/hr Oxytocin/Sodium Chloride (Pitocin In Ns 20 Units/1,000 Ml) 20 unit in 1,000 mls @ 6 mls/hr IV TITRATE LORRI; 2 MUNITS/MIN PRN Reason: Protocol Last Titration: 04/14/17 19:15 Dose: 250 mls/hr Ropivacaine (Naropin 0.2%) 100 mls @ 0 mls/hr EPIDUR ASDIRECTED LORRI; Titrate PRN Reason: Protocol Ceftriaxone Sodium 1 gm/ (Sodium Chloride) 50 mls @ 100 mls/hr IV Q24H LORRI Stop: 04/17/17 09:01 Ibuprofen (Motrin Bulk Bottle) 600 mg PO Q6H PRN PRN Reason: Pain Last Admin: 04/14/17 22:10 Dose: 3 tab Naloxone HCl (Narcan) 0.1 mg IVPUSH Q5M PRN PRN Reason: IF RESP RATE LESS THAN 6 Ondansetron HCl (Zofran) 4 mg IV Q4H PRN PRN Reason: Nausea/Vomiting Last Admin: 04/14/17 11:51 Dose: 4 mg Sodium Chloride (Saline Flush) 10 ml FLUSH ASDIRECTED PRN PRN Reason: Keep Vein Open Witch Kristyn (Tucks) 1 pad TOP ASDIRECTED PRN PRN Reason: Hemorrhoids Last Admin: 04/14/17 22:14 Dose: 1 applic Discontinued Medications Acetaminophen (Tylenol) 650 mg PO Q4H PRN PRN Reason: Pain (Mild 1-3) and fever Acetaminophen (Tylenol Bulk Bottle) 325 mg PO Q4H PRN PRN Reason: Pain Acetaminophen (Tylenol Bulk Bottle) 325 mg PO Q4H PRN PRN Reason: Pain Acetaminophen/Codeine Phosphate (Tylenol With Codeine No.3 300mg/30mg) 1 tab PO Q4H PRN PRN Reason: Pain (moderate 4-6) Ephedrine Sulfate (Ephedrine In Ns) Confirm Administered Dose 50 mg .ROUTE .STK- MED ONE Stop: 04/14/17 13:48 Last Admin: 04/14/17 15:04 Dose: Not Given Fentanyl (Sublimaze) 100 mcg IVPUSH Q1H PRN PRN Reason: Pain (moderate 4-6) Oxytocin/Sodium Chloride (Pitocin In Ns 20 Units/1,000 Ml) 20 unit in 1,000 mls @ 2,997 mls/hr IV ONETIME ONE; 999 MUNITS/MIN PRN Reason: Protocol Stop: 04/14/17 07:53 Last Admin: 04/14/17 21:25 Dose: Not Given Lactated Ringer's (Ringers, Lactated) 1,000 mls @ 999 mls/hr IV .BOLUS ONE Stop: 04/14/17 08:33 Last Admin: 04/14/17 12:41 Dose: 999 mls/hr Penicillin G Potassium 5 (millunits/ Sodium Chloride) 50 mls @ 100 mls/hr IV ONETIME ONE Stop: 04/14/17 09:29 Last Admin: 04/14/17 09:05 Dose: 100 mls/hr Penicillin G Potassium 2.5 (millunits/ Sodium Chloride) 50 mls @ 100 mls/hr IV Q4H [facility] Last Admin: 04/14/17 21:56 Dose: Not Given Oxytocin/Sodium Chloride (Pitocin In Ns 20 Units/1,000 Ml) Confirm Administered Dose 20 unit in 1,000 mls @ as directed .ROUTE .STK-MED ONE Stop: 04/14/17 14:57 Last Admin: 04/14/17 15:02 Dose: Not Given Lactated Ringer's (Ringers, Lactated) 500 mls @ 999 mls/hr IV BOLUS ONE Stop: 04/14/17 16:20 Last Admin: 04/14/17 21:35 Dose: Not Given Ibuprofen (Motrin) 600 mg PO Q6H PRN PRN Reason: mild pain or fever Lidocaine HCl (Xylocaine 1%) Confirm Administered Dose 100 ml .ROUTE .STK-MED ONE Stop: 04/14/17 19:04 Last Admin: 04/14/17 21:56 Dose: Not Given Misoprostol (Cytotec) 50 mcg VAG Q4H [facility] Last Admin: 04/14/17 21:56 Dose: Not Given - Infant Interaction Infant Disposition, : at Bedside Interaction: Holding Feeding: Attempted ; Nursed Fair/Poor Support Person: - Recovery Exam Fundal Tone: Firm Fundal Level: At Umbilicus Fundal Placement: Midline Lochia Amount: Small Lochia Color: Rubra/Red Perineum Description: Intact, Minimal Bruising/Swelling Episiotomy/Laceration: Approximated Bladder Status: Voiding Urinary Elimination: Voided - Exam General: Alert, Oriented HEENT: Pupils Equal Neck: Supple Lungs: Clear to Auscultation, Normal Respiratory Effort Cardiovascular: Regular Rate, Regular Rhythm GI/Abdominal Exam: Normal Bowel Sounds, Soft, Non-Tender, No Organomegaly, No Distention, No Abnormal Bruit, No Mass, Pelvis Stable Extremities: Normal Inspection, Normal Range of Motion, Non-Tender, No Pedal Edema, Normal Capillary Refill Skin: Warm, Dry, Intact Wound/Incisions: Healing Well Neurological: No New Focal Deficit Psy/Mental Status: Alert, Normal Affect, Normal Mood Physical Findings Comment:: 04/15/2017 Labial lacerations and perineal lacerations, minimal swelling, no signs or symptoms of hematoma on digital inspection - Problem List & Annotations (1) SNOMED Code(s): 05923373 Code(s): Z34.90 - ENCNTR FOR SUPRVSN OF NORMAL , UNSP, UNSP TRIMESTER Status: Acute Current Visit: Yes Qualifiers: Weeks of gestation: 40 weeks Qualified Code(s): Z3A.40 - 40 weeks gestation of (2) Post-dates SNOMED Code(s): 14169316 Code(s): O48.0 - POST-TERM Status: Acute Current Visit: Yes Qualifiers: Post-term type: 40-42 weeks gestation Qualified Code(s): O48.0 - Post-term (3) Elevated WBC count SNOMED Code(s): 688346346 Code(s): D72.829 - ELEVATED WHITE BLOOD CELL COUNT, UNSPECIFIED Status: Acute Current Visit: Yes (4) Encounter for induction of labor SNOMED Code(s): 645576594 Code(s): Z34.90 - ENCNTR FOR SUPRVSN OF NORMAL , UNSP, UNSP TRIMESTER Status: Acute Current Visit: Yes (5) Maternal fever affecting labor SNOMED Code(s): 337269172 Code(s): O75.2 - PYREXIA DURING LABOR, NOT ELSEWHERE CLASSIFIED Status: Acute Current Visit: Yes (6) Laceration of labial mucosa without complication SNOMED Code(s): 563439177 Code(s): S01.512A - LACERATION WITHOUT FOREIGN BODY OF ORAL CAVITY, INIT ENCNTR Status: Acute Current Visit: Yes Qualifiers: Encounter type: initial encounter Qualified Code(s): S01.512A - Laceration without foreign body of oral cavity, initial encounter (7) Perineal laceration SNOMED Code(s): 575198699 Code(s): S31.41XA - LACERATION W/O FOREIGN BODY OF VAGINA AND VULVA, INIT ENCNTR Status: Acute Current Visit: Yes Qualifiers: Encounter type: initial encounter Qualified Code(s): S31.41XA - Laceration without foreign body of vagina and vulva, initial encounter (8) Normal vaginal delivery SNOMED Code(s): 45903810 Code(s): O80 - ENCOUNTER FOR FULL-TERM UNCOMPLICATED DELIVERY Status: Acute Current Visit: Yes (9) Shoulder (girdle) dystocia during labor and deliver, delivered SNOMED Code(s): 94503491 Code(s): O66.0 - OBSTRUCTED LABOR DUE TO SHOULDER DYSTOCIA Status: Acute Current Visit: Yes (10) () SNOMED Code(s): 349189806 Code(s): Z78.9 - OTHER SPECIFIED HEALTH STATUS Status: Acute Current Visit: Yes - Problem List Review Problem List Initiated/Reviewed/Updated: Yes - My Orders Last 24 Hours: My Active Orders 04/14/17 10:30 Oxytocin/Normal Saline [Pitocin in NS 20 Units/1,000 ML] 20 unit in 1,000 ml IV TITRATE 04/14/17 11:43 fentaNYL [Sublimaze] 50 - 100 mcg IVPUSH Q1H PRN 04/14/17 13:06 ePHEDrine/Normal Saline [ePHEDrine in NS] 5 - 10 mg IVPUSH ONETIME PRN 04/14/17 19:42 Patient Status [ADT] Routine Benzocaine [Uflh-B-Ikxlqjh 20% [place]] See Dose Instructions TOP Q4H PRN Docusate Sodium [Colace] 100 mg PO BID PRN Lanolin [Lansinoh HPA] 0 gm TOP ASDIRECTED PRN Witch Kristyn [Tucks] 1 pad TOP ASDIRECTED PRN Assess Lochia [WOMSER] Per Unit Routine Assess Uterine Involution [WOMSER] Per Unit Routine 04/14/17 19:44 Ice Therapy [OM.PC] Per Unit Routine Perineal Care [OM.PC] Per Unit Routine Sitz Bath [OM.PC] Per Unit Routine 04/14/17 19:48 Ibuprofen [Motrin Bulk Bottle] 600 mg PO Q6H PRN 04/14/17 22:15 Acetaminophen [Tylenol Bulk Bottle] 325 - 650 mg PO Q4H PRN 04/15/17 09:00 cefTRIAXone [Rocephin] 1 gm Sodium Chloride 0.9% [Normal Saline] 50 ml IV Q24H 04/16/17 06:00 CBC WITH AUTO DIFF [HEME] Routine - Assessment Assessment:: 04/14/2017 21 yo G1 now P1 40 4/7 gestational weeks with a shoulder dystocia Perineal Laceration Bilateral Labial laceration Labs-A positive, Rubella Immune, GBS negative, RPR nonreactive, Hep B neg, HIV neg --------- Normal day one Voiding and passing gas Fundus firm and bleeding decreasing Perineal and labial lacerations healing well, minimal swelling fair WBC-22.2 today and Hgb12.2 - Plan Plan:: 04/14/2017 21 yo 40 4/7 weeks gestation here for a planned elective induction SVE-1-2/75/-2 bishops-7 Cytotec 50mcg placed Plan- Monitor for active labor Monitor FHTs Up and about Can eat regular diet Intermittent monitoring if category one strip Pain management per patient request Anticipate and plan for a vaginal delivery 04/14/2017 Routine Cares Encourage and support Ice, tucks, and dermaplast to labial area Plan discharge at 48hrs due to elevated temperature and WBC 04/15/2017 Continue routine cares Continue to encourage and support Continue and encourage good perineal care Initiate IV rocephin this am times 1gram every 24hrs CBC again in am
--- NOTE | 2017-04-15 12:55 | ANES ---
DATE OF SERVICE: 04/14/2017 Labor Epidural Note INDICATION: I was notified of a lady requesting labor epidural for labor pains at approximately 1:10 or 1:15 in the afternoon. I was at bedside at approximately 1345 hours. I did a quick H and P rundown with the patient and no significant medical conditions were noted and no significant bleeding issues noted. Risks and benefits were discussed with the patient and . The patient verbalizes the understanding and wishes to proceed with the labor epidural at this time. TECHNIQUE: The patient was then sat at the edge of the bed. Betadine prep x3 to the lumbar region was done. A sterile drape was then placed. 1% lidocaine skin wheal and deep was injected. A 17-gauge Tuohy needle was then inserted at approximately the L4-5 region. Loss of resistance was achieved at about 7.5 cm and catheter was easily placed to approximately 14 cm. Tuohy needle was then withdrawn and 3-mL test dose was done. Epidural was then taped. The patient was then laid supine with a slight left uterine displacement. 12 mL of 0.25% ropivacaine bolus was then done approximately 5 minutes after the test dose, which was negative. The 0.2% ropivacaine drip was started at 12 mL an hour. The patient was having some relief when I left the bedside at approximately 1420 hours. Phil Bhatt CRNA /[id number]
--- NOTE | 2017-04-16 08:36 | PCM.PNPP ---
- General Info Date of Service: 04/16/17 Functional Status: Reports: Pain Controlled - Review of Systems General: Reports: No Symptoms HEENT: Reports: No Symptoms Pulmonary: Reports: No Symptoms Cardiovascular: Reports: No Symptoms Gastrointestinal: Reports: No Symptoms Genitourinary: Reports: No Symptoms Musculoskeletal: Reports: No Symptoms Skin: Reports: No Symptoms Neurological: Reports: No Symptoms Psychiatric: Reports: No Symptoms - General Info Date of Service: 04/16/17 - Patient Data Vital Signs - Most Recent: Last Vital Signs Temp 36.4 C 04/16/17 04:30 Pulse 90 04/16/17 04:30 Resp 18 04/16/17 04:30 BP 123/80 04/16/17 04:30 Pulse Ox 96 04/16/17 04:30 Weight - Most Recent: 109.316 kg Lab Results - Last 24 Hours: Laboratory Results - last 24 hr 04/16/17 Range/Units 05:06 WBC 15.2 H (4.5-11.0) K/uL RBC 3.85 (3.30-5.50) M/uL Hgb 11.4 L (12.0-15.0) g/dL Hct 35.0 L (36.0-48.0) % MCV 91 (80-98) fL MCH 30 (27-31) pg MCHC 33 (32-36) % Plt Count 210 (150-400) K/uL Add Manual Diff Yes Neutrophils % (Manual) 61 (36-66) % Band Neutrophils % 2 L (5-11) % Lymphocytes % (Manual) 25 (24-44) % Monocytes % (Manual) 7 H (2-6) % Eosinophils % (Manual) 4 (2-4) % Basophils % (Manual) 1 (0-1) % Med Orders - Current: Current Medications Acetaminophen (Tylenol Bulk Bottle) 325 - 650 mg PO Q4H PRN PRN Reason: Pain Benzocaine (Wchm-G-Vyzydzj 20% [place]) 0 gm TOP Q4H PRN PRN Reason: Perineal Comfort Measure Last Admin: 04/15/17 11:18 Dose: 1 applic Diphenhydramine HCl (Benadryl) 25 mg IVPUSH Q6H PRN PRN Reason: ITCHING Docusate Sodium (Colace) 100 mg PO BID PRN PRN Reason: Constipation Last Admin: 04/15/17 19:45 Dose: 100 mg Emollient Ointment (Lansinoh Hpa) 0 gm TOP ASDIRECTED PRN PRN Reason: Sore Nipples Last Admin: 04/14/17 22:10 Dose: 1 applic Ephedrine Sulfate (Ephedrine In Ns) 5 - 10 mg IVPUSH ONETIME PRN PRN Reason: Hypotension Ephedrine Sulfate (Ephedrine In Ns) 5 - 10 mg IVPUSH ASDIRECTED PRN PRN Reason: SYSTOLIC BP LESS THAN 100 Fentanyl (Sublimaze) 50 - 100 mcg IVPUSH Q1H PRN PRN Reason: Pain (moderate 4-6) Last Admin: 04/14/17 12:52 Dose: 100 mcg Lactated Ringer's (Ringers, Lactated) 1,000 mls @ 125 mls/hr IV ASDIRECTED LORRI Last Admin: 04/14/17 09:05 Dose: 125 mls/hr Oxytocin/Sodium Chloride (Pitocin In Ns 20 Units/1,000 Ml) 20 unit in 1,000 mls @ 6 mls/hr IV TITRATE LORRI; 2 MUNITS/MIN PRN Reason: Protocol Last Titration: 04/14/17 19:15 Dose: 250 mls/hr Ropivacaine (Naropin 0.2%) 100 mls @ 0 mls/hr EPIDUR ASDIRECTED LORRI; Titrate PRN Reason: Protocol Ceftriaxone Sodium 1 gm/ (Sodium Chloride) 50 mls @ 100 mls/hr IV Q24H LORRI Stop: 04/17/17 09:01 Last Admin: 04/15/17 10:25 Dose: 100 mls/hr Ibuprofen (Motrin Bulk Bottle) 600 mg PO Q6H PRN PRN Reason: Pain Last Admin: 04/14/17 22:10 Dose: 3 tab Naloxone HCl (Narcan) 0.1 mg IVPUSH Q5M PRN PRN Reason: IF RESP RATE LESS THAN 6 Ondansetron HCl (Zofran) 4 mg IV Q4H PRN PRN Reason: Nausea/Vomiting Last Admin: 04/14/17 11:51 Dose: 4 mg Sodium Chloride (Saline Flush) 10 ml FLUSH ASDIRECTED PRN PRN Reason: Keep Vein Open Witch Kristyn (Tucks) 1 pad TOP ASDIRECTED PRN PRN Reason: Hemorrhoids Last Admin: 04/14/17 22:14 Dose: 1 applic Discontinued Medications Acetaminophen (Tylenol) 650 mg PO Q4H PRN PRN Reason: Pain (Mild 1-3) and fever Acetaminophen (Tylenol Bulk Bottle) 325 mg PO Q4H PRN PRN Reason: Pain Acetaminophen (Tylenol Bulk Bottle) 325 mg PO Q4H PRN PRN Reason: Pain Acetaminophen/Codeine Phosphate (Tylenol With Codeine No.3 300mg/30mg) 1 tab PO Q4H PRN PRN Reason: Pain (moderate 4-6) Ephedrine Sulfate (Ephedrine In Ns) Confirm Administered Dose 50 mg .ROUTE .STK- MED ONE Stop: 04/14/17 13:48 Last Admin: 04/14/17 15:04 Dose: Not Given Fentanyl (Sublimaze) 100 mcg IVPUSH Q1H PRN PRN Reason: Pain (moderate 4-6) Oxytocin/Sodium Chloride (Pitocin In Ns 20 Units/1,000 Ml) 20 unit in 1,000 mls @ 2,997 mls/hr IV ONETIME ONE; 999 MUNITS/MIN PRN Reason: Protocol Stop: 04/14/17 07:53 Last Admin: 04/14/17 21:25 Dose: Not Given Lactated Ringer's (Ringers, Lactated) 1,000 mls @ 999 mls/hr IV .BOLUS ONE Stop: 04/14/17 08:33 Last Admin: 04/14/17 12:41 Dose: 999 mls/hr Penicillin G Potassium 5 (millunits/ Sodium Chloride) 50 mls @ 100 mls/hr IV ONETIME ONE Stop: 04/14/17 09:29 Last Admin: 04/14/17 09:05 Dose: 100 mls/hr Penicillin G Potassium 2.5 (millunits/ Sodium Chloride) 50 mls @ 100 mls/hr IV Q4H LORRI Last Admin: 04/14/17 21:56 Dose: Not Given Oxytocin/Sodium Chloride (Pitocin In Ns 20 Units/1,000 Ml) Confirm Administered Dose 20 unit in 1,000 mls @ as directed .ROUTE .STK-MED ONE Stop: 04/14/17 14:57 Last Admin: 04/14/17 15:02 Dose: Not Given Lactated Ringer's (Ringers, Lactated) 500 mls @ 999 mls/hr IV BOLUS ONE Stop: 04/14/17 16:20 Last Admin: 04/14/17 21:35 Dose: Not Given Ibuprofen (Motrin) 600 mg PO Q6H PRN PRN Reason: mild pain or fever Lidocaine HCl (Xylocaine 1%) Confirm Administered Dose 100 ml .ROUTE .STK-MED ONE Stop: 04/14/17 19:04 Last Admin: 04/14/17 21:56 Dose: Not Given Misoprostol (Cytotec) 50 mcg VAG Q4H LORRI Last Admin: 04/14/17 21:56 Dose: Not Given - Interaction Disposition, : [place] at Bedside Interaction: Holding Infant Feeding: Breastfed ; Nursed Well Support Person: - Recovery Exam Fundal Tone: Firm Fundal Level: 1 Fingerbreadths Below Umbilicus Fundal Placement: Midline Lochia Amount: Small Lochia Color: Rubra/Red Perineum Description: Intact, Minimal Bruising/Swelling Episiotomy/Laceration: Approximated Bladder Status: Voiding Urinary Elimination: Voided Other Urinary Elimination, : due to void - Exam General: Alert, Oriented HEENT: Pupils Equal Neck: Supple Lungs: Clear to Auscultation, Normal Respiratory Effort Cardiovascular: Regular Rate, Regular Rhythm GI/Abdominal Exam: Normal Bowel Sounds, Soft, Non-Tender, No Organomegaly, No Distention, No Abnormal Bruit, No Mass, Pelvis Stable Extremities: Normal Inspection, Normal Range of Motion, Non-Tender, No Pedal Edema, Normal Capillary Refill Skin: Warm, Dry, Intact Neurological: No New Focal Deficit Psy/Mental Status: Alert, Normal Affect, Normal Mood Physical Findings Comment:: lacerations healing well, minimal swelling, no signs of hematoma - Problem List & Annotations (1) SNOMED Code(s): 58909465 Code(s): Z34.90 - ENCNTR FOR SUPRVSN OF NORMAL , UNSP, UNSP TRIMESTER Status: Acute Current Visit: Yes Qualifiers: Weeks of gestation: 40 weeks Qualified Code(s): Z3A.40 - 40 weeks gestation of (2) Post-dates SNOMED Code(s): 54338678 Code(s): O48.0 - POST-TERM Status: Acute Current Visit: Yes Qualifiers: Post-term type: 40-42 weeks gestation Qualified Code(s): O48.0 - Post-term (3) Elevated WBC count SNOMED Code(s): 002379383 Code(s): D72.829 - ELEVATED WHITE BLOOD CELL COUNT, UNSPECIFIED Status: Acute Current Visit: Yes (4) Encounter for induction of labor SNOMED Code(s): 014130387 Code(s): Z34.90 - ENCNTR FOR SUPRVSN OF NORMAL , UNSP, UNSP TRIMESTER Status: Acute Current Visit: Yes (5) Maternal fever affecting labor SNOMED Code(s): 110123431 Code(s): O75.2 - PYREXIA DURING LABOR, NOT ELSEWHERE CLASSIFIED Status: Acute Current Visit: Yes (6) Laceration of labial mucosa without complication SNOMED Code(s): 382376394 Code(s): S01.512A - LACERATION WITHOUT FOREIGN BODY OF ORAL CAVITY, INIT ENCNTR Status: Acute Current Visit: Yes Qualifiers: Encounter type: initial encounter Qualified Code(s): S01.512A - Laceration without foreign body of oral cavity, initial encounter (7) Perineal laceration SNOMED Code(s): 928639127 Code(s): S31.41XA - LACERATION W/O FOREIGN BODY OF VAGINA AND VULVA, INIT ENCNTR Status: Acute Current Visit: Yes Qualifiers: Encounter type: initial encounter Qualified Code(s): S31.41XA - Laceration without foreign body of vagina and vulva, initial encounter (8) Normal vaginal delivery SNOMED Code(s): 41420288 Code(s): O80 - ENCOUNTER FOR FULL-TERM UNCOMPLICATED DELIVERY Status: Acute Current Visit: Yes (9) Shoulder (girdle) dystocia during labor and deliver, delivered SNOMED Code(s): 38159751 Code(s): O66.0 - OBSTRUCTED LABOR DUE TO SHOULDER DYSTOCIA Status: Acute Current Visit: Yes (10) (infant) SNOMED Code(s): 310874365 Code(s): Z78.9 - OTHER SPECIFIED HEALTH STATUS Status: Acute Current Visit: Yes - Problem List Review Problem List Initiated/Reviewed/Updated: Yes - My Orders Last 24 Hours: My Active Orders 04/15/17 09:00 cefTRIAXone [Rocephin] 1 gm Sodium Chloride 0.9% [Normal Saline] 50 ml IV Q24H - Assessment Assessment:: 04/14/2017 21 yo G1 now P1 40 4/7 gestational weeks with a shoulder dystocia Perineal Laceration Bilateral Labial laceration Labs-A positive, Rubella Immune, GBS negative, RPR nonreactive, Hep B neg, HIV neg --------- Normal day one Voiding and passing gas Fundus firm and bleeding decreasing Perineal and labial lacerations healing well, minimal swelling fair WBC-22.2 today and Hgb12.2 Normal Day Two Fundus firm and bleeding decreasing Perineal and labial lacerations healing well, minimal swelling well WBC-15.2 today, Hgb-11.4 Pain controlled with just oral medications - Plan Plan:: 04/14/2017 21 yo 40 4/7 weeks gestation here for a planned elective induction SVE-1-2/75/-2 bishops-7 Cytotec 50mcg placed Plan- Monitor for active labor Monitor FHTs Up and about Can eat regular diet Intermittent monitoring if category one strip Pain management per patient request Anticipate and plan for a vaginal delivery 04/14/2017 Routine Cares Encourage and support Ice, tucks, and dermaplast to labial area Plan discharge at 48hrs due to elevated temperature and WBC 04/15/2017 Continue routine cares Continue to encourage and support Continue and encourage good perineal care Initiate IV rocephin this am times 1gram every 24hrs CBC again in am 04/16/2017 Continue Routine Cares Continue to encourage and support Continue to encourage good perineal care Give one more dose of rocephin IV before discharge Then home on Keflex 500mg BID starting tomorrow Monday am and continuing for seven days To see me for lab and visit on Monday in clinic Discharge home today
== END 2017-04-16 14:51 | disposition home or self-care (01) | DRG 774 ==
LOC: JP.OB 06:53 → OBSVTOIN 18:39 → JP.MS 22:32
PROVIDERS: ADMIT Advanced Practice Midwife; ATTEND Advanced Practice Midwife
PROC: 10E0XZZ Delivery of Products of Conception, External Approach (ICD-10-PCS; principal; 2017-04-14)
PROC: 3E0P7VZ Introduction of Hormone into Female Reproductive, Via Natural or Artificial Opening (ICD-10-PCS; 2017-04-14)
PROC: 3E033VJ Introduction of Other Hormone into Peripheral Vein, Percutaneous Approach (ICD-10-PCS; 2017-04-14)
PROC: 0HQ9XZZ Repair Perineum Skin, External Approach (ICD-10-PCS; 2017-04-14)
PROC: 0UQMXZZ Repair Vulva, External Approach (ICD-10-PCS; 2017-04-14)
PROC: 00HU33Z Insertion of Infusion Device into Spinal Canal, Percutaneous Approach (ICD-10-PCS; 2017-04-14)
DX: O48.0 Post-term pregnancy (principal); O75.2 Pyrexia during labor, not elsewhere classified; O66.0 Obstructed labor due to shoulder dystocia; Z3A.40 40 weeks gestation of pregnancy; O70.0 First degree perineal laceration during delivery; Z37.0 Single live birth; O75.89 Other specified complications of labor and delivery; D72.829 Elevated white blood cell count, unspecified
CPT/HCPCS: 36415; 59300; 59409; 80305; 81001; 85025; A9270-GY; J0696; J2405; J2540; J2590; J3010; J7050; J7120